=== PATIENT | female | born 1970 | race Caucasian/White ===

== ENCOUNTER 2021-05-09 06:42 | Day surgery (SDC) | payer OTHER ==
[~2021-05-09] VITALS: Ht 167.6 cm; Wt 84.8 kg
[2021-05-09] MEDS ORDERED: MIDAZOLAM 5 MG/5 ML VIAL ONE (09:21)
[2021-05-09] MEDS ORDERED: diphenhydrAMINE 50 MG/ML VIAL ONE (09:21)
[2021-05-09] MEDS ORDERED: fentaNYL citrate 0.05 MG/ML VIAL ONE (09:21)
[2021-05-09] MEDS ORDERED: LIDOCAINE 2% 100 MG/5 ML UJET TP ONE ×2 (09:21→09:40)
[2021-05-09] MEDS ORDERED: fentaNYL citrate 0.05 MG/ML VIAL IVP ONE (09:40)
[2021-05-09] MEDS ORDERED: MIDAZOLAM 2 MG/2 ML VIAL IVP ONE (09:40)
== END 2021-05-09 10:35 | disposition home or self-care (01) ==
LOC: MDS 06:42 → MMU 06:44 → MDS 10:35
PROVIDERS: ATTEND Internal Medicine Gastroenterology
DX: R10.9 Unspecified abdominal pain (principal); D12.5 Benign neoplasm of sigmoid colon; K57.30 Diverticulosis of large intestine without perforation or abscess without bleeding; Z79.82 Long term (current) use of aspirin; Z79.899 Other long term (current) drug therapy; Z20.822 Contact with and (suspected) exposure to COVID-19
CPT/HCPCS: 45380; 45385; 81025; 88305; J2250; J3010; J1200